=== PATIENT | female | born 1970 | race Caucasian/White ===

== ENCOUNTER → 2017-08-05 | Outpatient (CLI) | payer BC | LOC: MC.RAD 07:00 | DX: Z12.31 Encounter for screening mammogram for malignant neoplasm of breast (principal) ==

== ENCOUNTER → 2018-12-22 | Outpatient (CLI) | payer BC | LOC: COL.PUL 08:00 | DX: R05 Cough (principal) ==

== ENCOUNTER → 2019-01-01 | Outpatient (CLI) | payer BC | LOC: COL.RAD 10:58 | DX: J42 Unspecified chronic bronchitis (principal); R91.1 Solitary pulmonary nodule | CPT/HCPCS: Q9967 ==

== ENCOUNTER 2020-04-14 17:24 | Emergency (ER) | payer BC ==
[~2020-04-14] VITALS: Ht 165.1 cm; Wt 72.7 kg
[2020-04-14 17:41] VITALS: BP 165/118; TEMP 97.8
[2020-04-14 18:42] LABS: BASO # 0.1 (0.0-0.2); BASO % 0.6 % (0.0-2.0); EOS # 0.1 (0.0-0.7); EOS % 0.6 % (0-4.0); HEMATOCRIT 38.9 % (37.0-47.0); LYMPH # 2.1 (1.2-3.4); LYMPH % 19.3 % (20.0-51.0); MEAN CELL VOLUME 88 fl (80.0-100.0); MEAN CORPUSCULAR HEMOGLOBIN 29 pg (27.0-31.0); MEAN CORPUSCULAR HGB CONC 33 g/dl (33.0-37.0); MEAN PLATELET VOLUME 8.9 fl (7.4-10.4); MONO # 0.6 (0.1-0.6); MONO % 5.2 % (1.7-9.3); PLATELET COUNT 292 K/mm3 (130-400); RED BLOOD COUNT 4.42 M/mm3 (4.10-5.30); REDCELL DISTRIBUTION WIDTH-CV 12.3 % (11.5-14.5)
[2020-04-14 18:55] LABS: ALBUMIN 4.4 gm/dL (3.5-5.0); BILIRUBIN,TOTAL 0.4 mg/dL (0.0-1.0); CALCIUM 9.5 mg/dL (8.4-10.2); CREATININE, serum 0.91 (0.52-1.25); POTASSIUM 4.1 mmol/L (3.4-5.0); TOTAL PROTEIN 7.6 gm/dL (6.4-8.2)
[2020-04-14 19:04] LABS: COLLECTION METHOD CLEAN CATCH
[2020-04-14 19:23] LABS: MUCOUS Present /lpf; PH 5 (5-8); SQUAMOUS EPITHELIAL 0-2 /hpf; URINE APPEARANCE Hazy; URINE BACTERIA None Seen /hpf; URINE BILIRUBIN Negative (NEGATIVE); URINE BLOOD 3+ (NEGATIVE); URINE COLOR Yellow; URINE GLUCOSE Negative (NEGATIVE); URINE KETONE Negative (NEGATIVE); URINE LEUKOCYTE ESTERASE Negative (NEGATIVE); URINE NITRATE Negative (NEGATIVE); URINE PROTEIN(semi-quant) 1+ (NEGATIVE); URINE RBC >50 /hpf; URINE UROBILINOGEN Negative (NEGATIVE)
[2020-04-14] MEDS ORDERED: VIORELE 0.15 MG1 TAB PO (19:34)
[2020-04-14] MEDS ORDERED: DIPROLENE 0.05%50 GM TP (19:34)
[2020-04-14] MEDS ORDERED: ZOLOFT 100MG100 MG PO (19:35)
[2020-04-14] MEDS ORDERED: LEVOXYL0.05 MG PO (19:35)
[2020-04-14] MEDS ORDERED: ZOFRAN 4MG T4 MG/TAB PO (20:28)
[2020-04-14] MEDS ORDERED: NORCO 325 MG-51 TAB PO (20:28)
[2020-04-14] MEDS ORDERED: FLOMAX 0.40.4 MG/CAP PO (20:28)
[2020-04-14 21:00] VITALS: PULSE 66
== END 2020-04-14 21:00 | disposition home or self-care (01) ==
LOC: COL.ER 17:24
PROVIDERS: Emergency Medicine
DX: N13.2 Hydronephrosis with renal and ureteral calculous obstruction (principal); Z32.02 Encounter for pregnancy test, result negative; Z79.899 Other long term (current) drug therapy
CPT/HCPCS: J1170; J1885; J2405; J7030; Q9967

== ENCOUNTER → 2021-01-03 | Outpatient (CLI) | payer BC ==
[~2021-01-03] MED LIST: DIPROLENE 0.05%50 GM TP; FLOMAX 0.40.4 MG/CAP PO; LEVOXYL0.05 MG PO; NORCO 325 MG-51 TAB PO; VIORELE 0.15 MG1 TAB PO; ZOFRAN 4MG T4 MG/TAB PO; ZOLOFT 100MG100 MG PO
== END ==
LOC: MC.RAD 15:45
DX: Z12.31 Encounter for screening mammogram for malignant neoplasm of breast (principal)

== ENCOUNTER 2022-01-04 09:00 | Outpatient (RCR) | payer BC | END 2022-01-07 | disposition home or self-care (01) | LOC: MKS.ESL.PT | DX: H81.13 Benign paroxysmal vertigo, bilateral (principal); M72.2 Plantar fascial fibromatosis ==

== ENCOUNTER → 2022-01-05 | Outpatient (CLI) | payer BC | LOC: MC.RAD 11:00 | DX: Z12.31 Encounter for screening mammogram for malignant neoplasm of breast (principal) ==

== ENCOUNTER 2022-01-17 15:30 | Outpatient (RCR) | payer BC | END 2022-02-07 | disposition home or self-care (01) | LOC: MKS.ESL.PT | DX: H81.13 Benign paroxysmal vertigo, bilateral (principal); M72.2 Plantar fascial fibromatosis ==

== ENCOUNTER → 2023-02-20 | Outpatient (CLI) | payer BC | LOC: DIA.ED 10:41 | DX: E11.9 Type 2 diabetes mellitus without complications (principal); Z79.84 Long term (current) use of oral hypoglycemic drugs; E78.5 Hyperlipidemia, unspecified ==